=== PATIENT | female | born 1955 | race Caucasian/White ===

== ENCOUNTER 2019-01-03 17:06 | Emergency (ER) | payer MEDICAID ==
[~2019-01-03] VITALS: Ht 160 cm; Wt 59.1 kg
[2019-01-03 17:15] VITALS: Ht 160 cm; Wt 59.1 kg
[2019-01-03] MEDS ORDERED: ZOLOFT50 MG PO (17:17)
[2019-01-03] MEDS ORDERED: NEURONTIN 300300 MG PO (17:18)
[2019-01-03] MEDS ORDERED: CYCLOBENZAPRINE10 MG PO (17:18)
[2019-01-03] MEDS ORDERED: ULTRAM50 MG PO (19:16)
[2019-01-03 19:26] VITALS: BP 122/85
== END 2019-01-03 19:27 | disposition home or self-care (01) ==
LOC: D.ER 17:06
DX: S43.401A Unspecified sprain of right shoulder joint, initial encounter (principal); X50.0XXA Overexertion from strenuous movement or load, initial encounter; F17.210 Nicotine dependence, cigarettes, uncomplicated